=== PATIENT | male | born 1995 | race Caucasian/White ===

== ENCOUNTER 2017-05-24 17:50 | Emergency (ER) | payer OTHER ==
[2017-05-24] MEDS ORDERED: Lidocaine 1% 20 ML MDV INJECT ONE (18:13)
[2017-05-24] MEDS ORDERED: Diphtheria,Pertussis(Acell),Tetanus Vaccine 0.5 ML SDV IM ONE (18:14)
[2017-05-24] MEDS ORDERED: Lidocaine 1% 50 ML MDV INJECT STA (18:19)
--- NOTE | 2017-05-24 18:48 | EDM.PDOC ---
<Yelena Lucia - Last Filed: 05/24/17 19:03> ED HPI GENERAL MEDICAL PROBLEM - General Chief Complaint: Laceration Stated Complaint: LEFT RING FINGER LAC Time Seen by Provider: 05/24/17 17:55 Source of Information: Reports: Patient History Limitations: Reports: No Limitations - History of Present Illness INITIAL COMMENTS - FREE TEXT/NARRATIVE: Patient is a 22 YO male who presents after cutting his finger at work. He was cutting gorilla tape with a pocket knife when it slipped and cut his left 4th finger dorsal, lateral near the nail. He is unaware of when his last tetanus shot was. Left 4-Ring finger Pain Score (Numeric/FACES): 4 - Related Data Allergies Allergy/AdvReac Type Severity Reaction Status Date / Time No Known Allergies Allergy Verified 03/26/15 08:49 Home Meds: Home Meds . [No Known Home Meds] 05/24/17 [History] Past Medical History - Past Health History Medical/Surgical History: Denies Medical/Surgical History Social & Family History - Tobacco Use Smoking Status *Q: Current Every Day Smoker Years of Tobacco use: 7 Packs/Tins Daily: 0.2 - Caffeine Use Caffeine Use: Reports: Energy Drinks, Soda - Recreational Drug Use Recreational Drug Use: No ED ROS GENERAL - Review of Systems Review Of Systems: See Below Constitutional: Reports: No Symptoms Respiratory: Reports: No Symptoms Cardiovascular: Reports: No Symptoms Skin: Reports: Other (See HPI) Neurological: Reports: No Symptoms Psychiatric: Reports: No Symptoms ED EXAM, SKIN/RASH Exam Limited By: No Limitations General Appearance: Alert, WD/WN, No Apparent Distress Respiratory/Chest: No Respiratory Distress Extremities: Normal Capillary Refill (with intact sensation to the tip of the 4th left finger), Other (left hand: 2 cm laceration on the dorsal lateral aspect of the 4th finger) Neurological: Alert, Oriented, Normal Cognition Psychiatric: Normal Affect, Normal Mood Lymphatic: No Adenopathy ED SKIN PROCEDURES - Laceration/Wound Repair Left Lateral Dorsal Finger Lac/Wound length In cm: 2 Appearance: Superficial Distal NVT: Neuro & Vascular Intact, No Tendon Injury Anesthetic Type: Local Local Anesthesia - Lidocaine (Xylocaine): 1% Plain Local Anesthetic Volume: 3cc Skin Prep: Saline Exploration/Debridement/Repair: Wound Explored, No Foreign Material Found Closed with: Sutures Suture Size: other (5-0) # of Sutures: 5 Suture Type: Nylon Sterile Dressing Applied: Nurse Tetanus Status Addressed: Other (Unknown: Tetanus given today) Course - Vital Signs Last Recorded V/S: Last Vital Signs Temp 37.0 C 05/24/17 18:00 Pulse 80 05/24/17 18:00 Resp 20 05/24/17 18:00 BP 108/69 05/24/17 18:00 Pulse Ox 97 05/24/17 18:00 - Orders/Labs/Meds Orders: Active Orders 24 hr Category Date Time Status Vaccines to be Administered [RC] PER UNIT ROUTINE Care 05/24/17 18:15 Active Meds: Medications Discontinued Medications Generic Name Dose Route Start Last Admin Trade Name Freq PRN Reason Stop Dose Admin Diphtheria/Tetanus/Acell Pertussis 0.5 ml 05/24/17 18:14 05/24/17 18:44 Adacel IM 05/24/17 18:15 0.5 ml .ONCE ONE Administration Lidocaine HCl 20 ml 05/24/17 18:13 05/24/17 18:19 Xylocaine 1% INJECT 05/24/17 18:14 Not Given ONETIME ONE Lidocaine HCl 50 ml 05/24/17 18:19 05/24/17 18:19 Xylocaine 1% INJECT 05/24/17 18:20 50 ml ONETIME STA Administration Departure - Departure Time of Disposition: 18:58 Disposition: Home, Self-Care 01 Condition: Good Clinical Impression: Laceration - Discharge Information Instructions: Laceration Care, Adult, [id number] Referrals: PCP,None [Primary Care Provider] - Forms: ED Department Discharge Additional Instructions: Wash with gental soap and water twice a day. Pat dry. Keep covered and clean. Apply bacitracin to the area. Tylenol can be used for any pain. Follow-up for suture removal in approximately 10 days. This can be done through the clinic. Their number is [phone]. This can also be done at a walk-in clinic. Don't hesitate to return if your symptoms change or worsen. - My Orders Last 24 Hours: My Active Orders 05/24/17 18:15 Vaccines to be Administered [RC] PER UNIT ROUTINE - Assessment/Plan Last 24 Hours: My Active Orders 05/24/17 18:15 Vaccines to be Administered [RC] PER UNIT ROUTINE <Saida Caraballo - Last Filed: 05/24/17 20:52> ED HPI GENERAL MEDICAL PROBLEM - History of Present Illness INITIAL COMMENTS - FREE TEXT/NARRATIVE: I have seen the patient and agree with the history of present illness as documented by JACBOO Adan. Additional anemia patient reports no numbness or tingling to the finger. Reports good range of motion. ED ROS GENERAL - Review of Systems Review Of Systems: See Below Skin: Reports: Wound (approximately 2cm in length flap laceration to the left hand 4th finger) Neurological: Denies: Numbness, Tingling ED EXAM, SKIN/RASH Exam: See Below Cardiovascular: Normal Peripheral Pulses Peripheral Pulses: 2+: Radial (L), Radial (R) Skin: Warm, Dry, Wound/Incision (approximately 2cm in length flap laceration to the left hand 4th finger) Location, Skin: Upper Extremity, Left Course - Re-Assessments/Exams Free Text/Narrative Re-Assessment/Exam: 05/24/17 18:49 I had seen the patient and agree with the history of present illness, review of systems and physical exam as documented by JACOBO Adan. 5 sutures are placed by JACOBO Adan. patient tolerated the procedure well. There were no complications. Discharge instructions as documented. Departure - Departure Condition: Good
== END 2017-05-24 19:10 | disposition home or self-care (01) ==
LOC: JD.ED 17:50
DX: S61.215A Laceration without foreign body of left ring finger without damage to nail, initial encounter (principal); Z23 Encounter for immunization; F17.210 Nicotine dependence, cigarettes, uncomplicated; W26.0XXA Contact with knife, initial encounter; Y93.89 Activity, other specified
CPT/HCPCS: 12001; 90471; 90715; 99282-25; 99283-25